=== PATIENT | male | born 1965 | race Hispanic/Latino ===

== ENCOUNTER 2018-02-05 13:32 | Emergency (ER) | payer SELFPAY ==
[~2018-02-05] VITALS: Ht 165.1 cm; Wt 81.6 kg
[2018-02-05] MEDS ORDERED: BACTRIM DS TAB1 EACH PO (14:27)
[2018-02-05] MEDS ORDERED: MUPIROCIN22 GM TOP (14:27)
== END 2018-02-05 14:25 | disposition home or self-care (01) ==
LOC: FSED 13:32
DX: L02.11 Cutaneous abscess of neck (principal); E11.9 Type 2 diabetes mellitus without complications
CPT/HCPCS: 99283

== ENCOUNTER 2020-12-13 16:03 | Emergency (ER) | payer SELFPAY ==
[~2020-12-13] VITALS: Ht 177.8 cm; Wt 79.5 kg
[~2020-12-13 16:03] MED LIST: BACTRIM DS TAB1 EACH PO; MUPIROCIN22 GM TOP
[2020-12-13] MEDS ORDERED: DOXYCYCLINE HY100 MG PO (16:39)
[2020-12-13] MEDS ORDERED: CLEOCIN HCL300 MG PO (16:39)
[2020-12-13] MEDS ORDERED: PROBIOTIC & AC1 EACH PO (16:39)
[2020-12-13] MEDS ORDERED: CLINDAMYCIN PHOS 600 MG/ 4 ML VIAL IM NR (16:45)
[2020-12-13] MEDS ORDERED: METFORMIN HCL1000 MG (17:04)
[2020-12-13] MEDS ORDERED: CLINDAMYCIN PHOS 600 MG/ 4 ML VIAL ONE (17:06)
== END 2020-12-13 17:22 | disposition home or self-care (01) ==
LOC: FSED 16:15
DX: M79.671 Pain in right foot (principal); S91.331A Puncture wound without foreign body, right foot, initial encounter; L08.9 Local infection of the skin and subcutaneous tissue, unspecified; E11.9 Type 2 diabetes mellitus without complications; W45.0XXA Nail entering through skin, initial encounter; Y93.01 Activity, walking, marching and hiking; Y92.096 Garden or yard of other non-institutional residence as the place of occurrence of the external cause
CPT/HCPCS: 96372; 99283